=== PATIENT | male | born 1965 | race Caucasian/White ===

== ENCOUNTER 2022-12-07 09:42 | Emergency (ER) | payer BC ==
[~2022-12-07] VITALS: Ht 177.8 cm; Wt 127.3 kg
[2022-12-07 09:45] VITALS: TEMP 97.7
[2022-12-07] MEDS ORDERED: PREDNISONE20 MG PO (10:46)
[2022-12-07 12:03] VITALS: BP 152/74; PULSE 95
== END 2022-12-07 12:05 | disposition home or self-care (01) ==
LOC: COL.ER 09:42
DX: T78.40XA Allergy, unspecified, initial encounter (principal)